=== PATIENT | female | born 1970 | race Caucasian/White ===

== ENCOUNTER 2017-03-22 10:45 | Emergency (ER) | payer MEDICAID ==
[~2017-03-22] VITALS: Ht 172.7 cm; Wt 121.3 kg
[~2017-03-22 10:45] MED LIST: BUPR-173 PO; GABA600T2 PO; LORA10TA62 PO; OXYC20TA2 PO; RISP1TAB45 PO
[2017-03-22 11:07] VITALS: BP 123/80
[2017-03-22] MEDS: VENLAFAXINE XR 37.5MG CAP.ER.24H PO SCH (13:04)
== END 2017-03-22 13:29 | disposition home or self-care (01) ==
LOC: ED 13:23
DX: R46.89 Other symptoms and signs involving appearance and behavior (principal); F31.9 Bipolar disorder, unspecified; Z88.6 Allergy status to analgesic agent
CPT/HCPCS: 99283

== ENCOUNTER 2017-03-22 17:33 | Observation (INO) | payer MEDICARE, MEDICAID ==
[~2017-03-22] VITALS: Ht 175.3 cm; Wt 124.0 kg
[2017-03-22 18:49] LABS: ASPARTATE AMINO TRANSFERASE 32 U/L (15-37); BLOOD UREA NITROGEN 13 mg/dL (7-18)
[2017-03-22 18:55] LABS: ACETAMINOPHEN < 2 mcg/mL (10-30)
[2017-03-22 19:31] LABS: DAU SCREEN DISCLAIMER
[2017-03-22] MEDS ORDERED: BISACODYL 10 MG SUPP PR PRN (20:00)
[2017-03-22] MEDS: PLEASE ENTER HEIGHT AND WEIGHT MC SCH (20:00)
[2017-03-22] MEDS ORDERED: POLYETHYLENE GLYCOL 17 GM PACKET PO PRN (20:00)
[2017-03-22] MEDS ORDERED: ONDANSETRON ODT 4 MG PO PRN (20:00)
[2017-03-22] MEDS ORDERED: POTASSIUM CHLORIDE 20 MEQ TAB.ER.PRT PO ONE ×2 (20:00)
[2017-03-22] MEDS ORDERED: ACETAMINOPHEN 325 MG TABLET PO PRN (20:00)
[2017-03-22 21:09] VITALS: BP 111/73
[2017-03-22] MEDS: OXYcodone IR 30 MG TABLET PO SCH ×2 (22:35→22:43)
[2017-03-22] MEDS: GABAPENTIN 300 MG CAPSULE PO SCH (22:36)
[2017-03-22] MEDS: RISPERIDONE 1 MG TABLET PO SCH (22:37)
[2017-03-23] MEDS: PLEASE ENTER HEIGHT AND WEIGHT MC SCH ×2 (04:00→10:30)
[2017-03-23 07:43] VITALS: BP 141/81
[2017-03-23] MEDS ORDERED: LORATADINE 10 MG TABLET PO SCH (09:00)
[2017-03-23] MEDS ORDERED: BUPROPION SR 100 MG TABLET PO SCH (09:00)
[2017-03-23] MEDS ORDERED: SENNA/DOCUSATE TABLET PO SCH (09:00)
[2017-03-23] MEDS: GABAPENTIN 300 MG CAPSULE PO SCH (09:00)
[2017-03-23] MEDS: OXYcodone IR 30 MG TABLET PO SCH (09:00)
[2017-03-23] MEDS: RISPERIDONE 1 MG TABLET PO SCH (09:00)
[2017-03-23] MEDS ORDERED: CEFDINIR 300 MG CAPSULE PO SCH ×2 (09:00)
[2017-03-23 10:23] LABS: BLOOD UREA NITROGEN 8 mg/dL (7-18)
[2017-03-23] MEDS ORDERED: POTASSIUM CHLORIDE 20 MEQ TAB.ER.PRT PO SCH (17:00)
== END 2017-03-23 13:28 ==
LOC: ED 19:30 → EDIP 19:34 → ED 19:48 → 3E 21:03
DX: R45.851 Suicidal ideations (principal); F31.9 Bipolar disorder, unspecified; M41.9 Scoliosis, unspecified; N63 Unspecified lump in breast; E87.5 Hyperkalemia; R73.9 Hyperglycemia, unspecified; R17 Unspecified jaundice; D72.829 Elevated white blood cell count, unspecified; N39.0 Urinary tract infection, site not specified; Z59.0 Homelessness; Z91.19 Patient's noncompliance with other medical treatment and regimen
CPT/HCPCS: 36415; 80048; 80053; 80307; 80329; 81001; 85025; 87086; 99285; G0378; 87147; G0480

== ENCOUNTER 2017-04-29 17:02 | Emergency (ER) | payer MEDICARE, MEDICAID ==
[~2017-04-29] VITALS: Ht 172.7 cm; Wt 123.4 kg
[2017-04-29] MEDS ORDERED: PSYCH MED (17:51)
[2017-04-29 18:18] VITALS: BP 117/74
== END 2017-04-29 18:20 | disposition home or self-care (01) ==
LOC: ED 17:31
DX: S93.401A Sprain of unspecified ligament of right ankle, initial encounter (principal); Z88.5 Allergy status to narcotic agent; X58.XXXA Exposure to other specified factors, initial encounter; Y93.89 Activity, other specified; Y92.89 Other specified places as the place of occurrence of the external cause; Y99.8 Other external cause status
CPT/HCPCS: 99284